=== PATIENT | male | born 1955 | race Caucasian/White ===

== ENCOUNTER 2018-02-14 08:10 | Emergency (ER) | payer BC ==
[2018-02-14 08:55] LABS: ADD MAN DIFF? NO
[2018-02-14] MEDS: morphine 4 MG/ML VIAL IV (08:56)
[2018-02-14] MEDS: ONDANSETRON 4 MG INJ IV (08:56)
[2018-02-14] MEDS: FAMOTIDINE 20 MG INJ IV (08:56)
[2018-02-14] MEDS: SOD CHLORIDE 0.9% 1,000 ML IV (08:57)
[2018-02-14 09:03] LABS: BASOPHIL # 0.1 10^3/ul (0.0-0.1); BASOPHILS % 0.9 % (0.0-2.0); EOSINOPHILS # 0.4 10^3/ul (0.0-0.5); EOSINOPHILS % 5.4 % (0.0-7.0); HEMATOCRIT 45.6 % (42.0-52.0); HEMOGLOBIN 15.4 g/dl (14.0-18.0); LYMPHOCYTES # 1.8 10^3/ul (0.8-2.9); LYMPHOCYTES % 26.4 % (15.0-51.0); MEAN CORPUSCULAR HEMOGLOBIN 28.7 pg (29.0-33.0); MEAN CORPUSCULAR HGB CONC 33.8 g/dl (32.0-37.0); MEAN CORPUSCULAR VOLUME 84.9 fl (82.0-101.0); MEAN PLATELET VOLUME 9.3 fl (7.4-10.4); MONOCYTE # 0.5 10^3/ul (0.3-0.9); MONOCYTES % 7.7 % (0.0-11.0); NEUTROPHIL # 4.1 10^3/ul (1.6-7.5); NEUTROPHILS % 59.3 % (39.0-77.0); PLATELET COUNT 338 10^3/UL (140-415); RED BLOOD COUNT 5.37 10^6/ul (4.70-6.10)
[2018-02-14 09:03] LABS: WHITE BLOOD COUNT 6.9 10^3/ul (4.8-10.8)
[2018-02-14 09:26] LABS: ALANINE AMINOTRANSFERASE 59 IU/L (13-69); ALBUMIN 4.5 g/dl (3.3-4.9); ALKALINE PHOSPHATASE 74 IU/L (42-121); ANION GAP 9 (5-13); ASPARTATE AMINO TRANSFERASE 39 IU/L (15-46); BILIRUBIN,INDIRECT 0.5 mg/dl (0-1.1); BILIRUBIN,TOTAL 0.5 mg/dl (0.2-1.3); BLOOD UREA NITROGEN 15 mg/dl (7-20); CALCIUM 9.6 mg/dl (8.4-10.2); CARBON DIOXIDE 26 mmol/L (21-31); CHLORIDE 105 mmol/L (97-110); CREATININE 0.97 mg/dl (0.61-1.24); Estimated GFR > 60 mL/min (>60); GLUCOSE 111 mg/dl (70-220); LIPASE 54 U/L (23-300); POTASSIUM 4.5 mmol/L (3.5-5.1); SODIUM 140 mmol/L (135-144); TOTAL PROTEIN 7.5 g/dl (6.1-8.1)
[2018-02-14 09:37] LABS: TROPONIN-I < 0.012 ng/ml (0.000-0.120)
[2018-02-14 09:47] LABS: ADD UMIC NO; UR ASCORBIC ACID NEGATIVE (NEGATIVE); UR BILIRUBIN (Dip) NEGATIVE (NEGATIVE); UR BLOOD (Dip) NEGATIVE (NEGATIVE); UR CLARITY CLEAR (CLEAR); UR COLOR YELLOW (YELLOW); UR GLUCOSE (Dip) NEGATIVE (NEGATIVE); UR KETONES (Dip) NEGATIVE (NEGATIVE); UR LEUKOCYTE ESTERASE (Dip) NEGATIVE Leu/ul (NEGATIVE); UR NITRITE (Dip) NEGATIVE (NEGATIVE); UR SPECIFIC GRAVITY (Dip) 1.013 (1.003-1.030); UR TOTAL PROTEIN (Dip) NEGATIVE (NEGATIVE); UR UROBILINOGEN (Dip) NEGATIVE (NEGATIVE)
[2018-02-14] MEDS: SOD CHLORIDE 0.9% 100 ML (09:55)
[2018-02-14] MEDS: IOHEXOL 300MG/ML 150 ML BTL (09:55)
== END 2018-02-14 11:39 | disposition home or self-care (01) ==
LOC: E/R 08:10
DX: K59.00 Constipation, unspecified (principal); R11.0 Nausea; I25.10 Atherosclerotic heart disease of native coronary artery without angina pectoris; I10 Essential (primary) hypertension; Z79.01 Long term (current) use of anticoagulants; Z79.82 Long term (current) use of aspirin; Z98.61 Coronary angioplasty status
CPT/HCPCS: 36415; 74177; 80053; 81003; 83690; 84484; 85025; 93005; 96374; 96375; 99285-25

== ENCOUNTER 2018-04-04 15:13 | Inpatient (IN) | payer OTHER, BC ==
[2018-04-04 15:46] LABS: ADD MAN DIFF? NO; BASOPHIL # 0.1 10^3/ul (0.0-0.1); BASOPHILS % 0.8 % (0.0-2.0); EOSINOPHILS # 0.5 10^3/ul (0.0-0.5); EOSINOPHILS % 5.5 % (0.0-7.0); HEMATOCRIT 44.3 % (42.0-52.0); HEMOGLOBIN 15.2 g/dl (14.0-18.0); LYMPHOCYTES # 2.1 10^3/ul (0.8-2.9); LYMPHOCYTES % 24.3 % (15.0-51.0); MEAN CORPUSCULAR HEMOGLOBIN 28.9 pg (29.0-33.0); MEAN CORPUSCULAR HGB CONC 34.3 g/dl (32.0-37.0); MEAN CORPUSCULAR VOLUME 84.2 fl (82.0-101.0); MEAN PLATELET VOLUME 9.4 fl (7.4-10.4); MONOCYTE # 0.7 10^3/ul (0.3-0.9); MONOCYTES % 8.3 % (0.0-11.0); NEUTROPHIL # 5.3 10^3/ul (1.6-7.5); NEUTROPHILS % 60.8 % (39.0-77.0); PLATELET COUNT 330 10^3/UL (140-415); RED BLOOD COUNT 5.26 10^6/ul (4.70-6.10); RED CELL DISTRIBUTION WIDTH 11.9 % (11.5-14.5)
[2018-04-04 15:46] LABS: WHITE BLOOD COUNT 8.7 10^3/ul (4.8-10.8)
[2018-04-04] MEDS: ASPIRIN 325 MG TAB PO (15:52)
[2018-04-04] MEDS: NITROGLYCERIN (SL) 0.4 MG TAB SL (15:52)
[2018-04-04 16:00] LABS: INR 0.92; PROTIME 12.4 Sec (11.9-14.9)
[2018-04-04 16:01] LABS: PARTIAL THROMBOPLASTIN TIME 30.8 Sec (23.0-35.0)
[2018-04-04 16:04] LABS: ALANINE AMINOTRANSFERASE 50 IU/L (13-69); ALBUMIN 4.5 g/dl (3.3-4.9); ALBUMIN/GLOBULIN RATIO 1.66; ALKALINE PHOSPHATASE 78 IU/L (42-121); ANION GAP 14 (5-13); ASPARTATE AMINO TRANSFERASE 28 IU/L (15-46); BILIRUBIN,INDIRECT 0.4 mg/dl (0-1.1); BILIRUBIN,TOTAL 0.4 mg/dl (0.2-1.3); BLOOD UREA NITROGEN 19 mg/dl (7-20); CALCIUM 9.7 mg/dl (8.4-10.2); CARBON DIOXIDE 27 mmol/L (21-31); CHLORIDE 101 mmol/L (97-110); CREATININE 1.19 mg/dl (0.61-1.24); Estimated GFR > 60 mL/min (>60); GLUCOSE 118 mg/dl (70-220); SODIUM 142 mmol/L (135-144); TOTAL PROTEIN 7.2 g/dl (6.1-8.1)
[2018-04-04 16:15] LABS: TROPONIN-I 0.019 ng/ml (0.000-0.120)
[2018-04-04] MEDS: NITROGLYCERIN 2% 1 GM OINT PKT TD (17:41)
[2018-04-04] MEDS ORDERED: LORAZEPAM 2 MG INJ IV (18:00)
[2018-04-04] MEDS ORDERED: NITROGLYCERIN (SL) 0.4 MG TAB SL (18:00)
[2018-04-04] MEDS ORDERED: hydrALAzine 20 MG INJ IV (18:00)
[2018-04-04] MEDS ORDERED: NACL 0.9% 3 ML SYG IV (18:00)
[2018-04-04] MEDS ORDERED: MAGNESIUM HYDROXIDE 30ML CUP PO (18:00)
[2018-04-04] MEDS ORDERED: DOCUSATE SODIUM 100 MG CAP PO (18:00)
[2018-04-04] MEDS ORDERED: ALBUTEROL/IPRATROPIUM (NEB) 3 ML AMP HHN (18:00)
[2018-04-04] MEDS ORDERED: ONDANSETRON 4 MG INJ IV ×2 (18:00→19:00)
[2018-04-04] MEDS ORDERED: HYDROCODONE/APAP (5/325) TAB PO (18:00)
[2018-04-04] MEDS ORDERED: ACETAMINOPHEN 325 MG TAB PO (19:00)
[2018-04-04 19:17] LABS: FREE T4 (FREE THYROXINE) 1.34 ng/dl (0.78-2.44)
[2018-04-04] MEDS: SOD CHLORIDE 0.45% 1,000 ML IV (21:02)
[2018-04-04] MEDS: HEPARIN 5,000 UNIT/1 ML VIAL SC (21:19)
[2018-04-04 22:54] LABS: CREATINE KINASE 50 IU/L (23-200)
[2018-04-04 23:07] LABS: CK INDEX 0.8; CK-MB 0.38 ng/ml (0.0-2.4); TROPONIN-I 0.034 ng/ml (0.000-0.120)
[2018-04-05 05:22] LABS: ADD MAN DIFF? NO
[2018-04-05 05:41] LABS: BASOPHIL # 0.1 10^3/ul (0.0-0.1); BASOPHILS % 1.1 % (0.0-2.0); EOSINOPHILS # 0.6 10^3/ul (0.0-0.5); EOSINOPHILS % 7.4 % (0.0-7.0); HEMOGLOBIN 14.5 g/dl (14.0-18.0); LYMPHOCYTES # 2.4 10^3/ul (0.8-2.9); MEAN CORPUSCULAR HEMOGLOBIN 28.3 pg (29.0-33.0); MEAN CORPUSCULAR VOLUME 85.9 fl (82.0-101.0); MEAN PLATELET VOLUME 9.7 fl (7.4-10.4); MONOCYTE # 0.7 10^3/ul (0.3-0.9); MONOCYTES % 8.8 % (0.0-11.0); NEUTROPHIL # 3.9 10^3/ul (1.6-7.5); NEUTROPHILS % 51.4 % (39.0-77.0); PLATELET COUNT 309 10^3/UL (140-415); RED BLOOD COUNT 5.12 10^6/ul (4.70-6.10)
[2018-04-05 05:41] LABS: WHITE BLOOD COUNT 7.6 10^3/ul (4.8-10.8)
[2018-04-05 05:44] LABS: CREATINE KINASE 44 IU/L (23-200)
[2018-04-05 05:46] LABS: ANION GAP 10 (5-13); BLOOD UREA NITROGEN 21 mg/dl (7-20); CARBON DIOXIDE 33 mmol/L (21-31); CHLORIDE 102 mmol/L (97-110); Estimated GFR > 60 mL/min (>60); GLUCOSE 108 mg/dl (70-220); MAGNESIUM 2.3 mg/dl (1.7-2.5); PHOSPHORUS 4.5 mg/dl (2.5-4.9); SODIUM 145 mmol/L (135-144)
[2018-04-05 05:52] LABS: HEMOGLOBIN A1C 5.4 % (0-5.9)
[2018-04-05 05:57] LABS: CK INDEX 0.8; CK-MB 0.37 ng/ml (0.0-2.4); TROPONIN-I 0.038 ng/ml (0.000-0.120)
[2018-04-05 06:02] LABS: CHOL/HDL RATIO 6.7 RATIO; HDL CHOLESTEROL 41 mg/dl (30-78); LDL CHOLESTEROL,CALCULATED 202 mg/dl; TRIGLYCERIDES 158 mg/dl (0-149)
[2018-04-05 06:02] LABS: CHOLESTEROL 275 mg/dl (100-200)
[2018-04-05] MEDS: SOD CHLORIDE 0.45% 1,000 ML IV (07:07)
[2018-04-05] MEDS: ACETAMINOPHEN 325 MG TAB PO (08:29)
[2018-04-05] MEDS: REGADENOSON 0.4 MG/5 ML SYG (09:54)
[2018-04-05] MEDS: CLOPIDOGREL 75 MG TAB PO (10:43)
[2018-04-05] MEDS: ASPIRIN (EC) 325 MG TAB PO (10:43)
[2018-04-05] MEDS: HEPARIN 5,000 UNIT/1 ML VIAL SC ×2 (10:46→22:38)
[2018-04-05] MEDS: morphine 2 MG INJ IV ×2 (13:45→20:36)
[2018-04-05] MEDS: ATORVASTATIN 40 MG TAB PO (20:35)
[2018-04-06 07:05] LABS: ADD MAN DIFF? NO
[2018-04-06 07:12] LABS: BASOPHIL # 0.1 10^3/ul (0.0-0.1); BASOPHILS % 0.9 % (0.0-2.0); EOSINOPHILS # 0.7 10^3/ul (0.0-0.5); HEMATOCRIT 44.2 % (42.0-52.0); HEMOGLOBIN 14.6 g/dl (14.0-18.0); LYMPHOCYTES # 2.1 10^3/ul (0.8-2.9); LYMPHOCYTES % 28.1 % (15.0-51.0); MEAN CORPUSCULAR HEMOGLOBIN 28.6 pg (29.0-33.0); MEAN CORPUSCULAR VOLUME 86.5 fl (82.0-101.0); MEAN PLATELET VOLUME 9.7 fl (7.4-10.4); MONOCYTE # 0.7 10^3/ul (0.3-0.9); MONOCYTES % 9.4 % (0.0-11.0); NEUTROPHIL # 3.9 10^3/ul (1.6-7.5); NEUTROPHILS % 52.2 % (39.0-77.0); PLATELET COUNT 305 10^3/UL (140-415); RED BLOOD COUNT 5.11 10^6/ul (4.70-6.10); RED CELL DISTRIBUTION WIDTH 11.9 % (11.5-14.5)
[2018-04-06 07:12] LABS: WHITE BLOOD COUNT 7.5 10^3/ul (4.8-10.8)
[2018-04-06 08:01] LABS: ANION GAP 9 (5-13); BLOOD UREA NITROGEN 19 mg/dl (7-20); CALCIUM 9.7 mg/dl (8.4-10.2); CARBON DIOXIDE 31 mmol/L (21-31); CHLORIDE 103 mmol/L (97-110); CREATININE 1.03 mg/dl (0.61-1.24); Estimated GFR > 60 mL/min (>60); GLUCOSE 107 mg/dl (70-220); POTASSIUM 4.9 mmol/L (3.5-5.1); SODIUM 143 mmol/L (135-144)
[2018-04-06] MEDS: HEPARIN 5,000 UNIT/1 ML VIAL SC ×2 (08:32→20:43)
[2018-04-06] MEDS: morphine 2 MG INJ IV ×2 (08:33→20:30)
[2018-04-06] MEDS: ASPIRIN (EC) 325 MG TAB PO (08:33)
[2018-04-06] MEDS: CLOPIDOGREL 75 MG TAB PO (08:33)
[2018-04-06] MEDS: ISOSORBIDE DINITRATE 5 MG TAB PO ×2 (11:50→20:29)
[2018-04-06] MEDS: METOPROLOL 25 MG TAB PO ×2 (11:51→20:30)
[2018-04-06] MEDS: ATORVASTATIN 40 MG TAB PO (20:29)
[2018-04-07 06:07] LABS: ADD MAN DIFF? NO
[2018-04-07 06:09] LABS: BASOPHIL # 0.1 10^3/ul (0.0-0.1); EOSINOPHILS # 0.7 10^3/ul (0.0-0.5); EOSINOPHILS % 9.3 % (0.0-7.0); HEMATOCRIT 42.2 % (42.0-52.0); HEMOGLOBIN 13.9 g/dl (14.0-18.0); LYMPHOCYTES % 26.3 % (15.0-51.0); MEAN CORPUSCULAR HEMOGLOBIN 28.4 pg (29.0-33.0); MEAN CORPUSCULAR HGB CONC 32.9 g/dl (32.0-37.0); MEAN CORPUSCULAR VOLUME 86.1 fl (82.0-101.0); MEAN PLATELET VOLUME 9.4 fl (7.4-10.4); MONOCYTE # 0.7 10^3/ul (0.3-0.9); MONOCYTES % 9.3 % (0.0-11.0); NEUTROPHIL # 4.1 10^3/ul (1.6-7.5); NEUTROPHILS % 53.6 % (39.0-77.0); PLATELET COUNT 292 10^3/UL (140-415); RED CELL DISTRIBUTION WIDTH 11.9 % (11.5-14.5)
[2018-04-07 06:09] LABS: WHITE BLOOD COUNT 7.6 10^3/ul (4.8-10.8)
[2018-04-07 06:43] LABS: ANION GAP 10 (5-13); BLOOD UREA NITROGEN 22 mg/dl (7-20); CALCIUM 9.6 mg/dl (8.4-10.2); CARBON DIOXIDE 28 mmol/L (21-31); CHLORIDE 102 mmol/L (97-110); CREATININE 1.08 mg/dl (0.61-1.24); Estimated GFR > 60 mL/min (>60); GLUCOSE 109 mg/dl (70-220); POTASSIUM 4.3 mmol/L (3.5-5.1); SODIUM 140 mmol/L (135-144)
[2018-04-07] MEDS: HEPARIN 5,000 UNIT/1 ML VIAL SC (08:10)
[2018-04-07] MEDS: ASPIRIN (EC) 81 MG TAB PO (08:57)
[2018-04-07] MEDS: ISOSORBIDE DINITRATE 5 MG TAB PO ×2 (08:57→13:00)
[2018-04-07] MEDS: METOPROLOL 25 MG TAB PO ×2 (08:58→20:22)
[2018-04-07] MEDS: CLOPIDOGREL 75 MG TAB PO (08:58)
[2018-04-07] MEDS ORDERED: ASPIRIN (EC) 325 MG TAB PO (09:00)
[2018-04-07] MEDS ORDERED: MIDAZOLAM 1 MG/ML 2 ML INJ (12:38)
[2018-04-07] MEDS ORDERED: IODIXANOL LOCM 100 ML BTL (12:38)
[2018-04-07] MEDS ORDERED: LIDOCAINE 1% (MDV) 20 ML INJ (12:38)
[2018-04-07] MEDS ORDERED: FENTAnyl 50 MCG/ML VIAL (12:38)
[2018-04-07] MEDS ORDERED: HEPARIN 1000 UNITS/ML 10 ML INJ (12:38)
[2018-04-07] MEDS ORDERED: SOD CHLORIDE 0.9% 500 ML (12:38)
[2018-04-07] MEDS ORDERED: VERAPAMIL 5 MG INJ (12:39)
[2018-04-07] MEDS ORDERED: NITROGLYCERIN (IC) 100 MCG/ML INJ (12:39)
[2018-04-07] MEDS ORDERED: CLOPIDOGREL 300 MG TAB (13:25)
[2018-04-07] MEDS ORDERED: IOHEXOL 350MG/ML 50 ML BTL (13:59)
[2018-04-07] MEDS ORDERED: AL HYDROX/MG HYDROX/SIMETH 30 ML CUP PO (14:30)
[2018-04-07] MEDS ORDERED: ONDANSETRON 4 MG INJ IV (14:30)
[2018-04-07] MEDS ORDERED: ACETAMINOPHEN 325 MG TAB PO (14:30)
[2018-04-07] MEDS ORDERED: OXYCODONE/ACETAMINOPHEN (5/325) TAB PO (14:30)
[2018-04-07] MEDS: SOD CHLORIDE 0.9% 1,000 ML IV (15:14)
[2018-04-07] MEDS ORDERED: morphine 4 MG/ML VIAL IV ×2 (16:00)
[2018-04-07] MEDS: ATORVASTATIN 40 MG TAB PO (20:21)
[2018-04-08 06:51] LABS: ADD MAN DIFF? NO
[2018-04-08 07:00] LABS: BASOPHIL # 0.1 10^3/ul (0.0-0.1); BASOPHILS % 0.9 % (0.0-2.0); EOSINOPHILS # 0.7 10^3/ul (0.0-0.5); EOSINOPHILS % 7.6 % (0.0-7.0); HEMATOCRIT 42.2 % (42.0-52.0); LYMPHOCYTES # 1.8 10^3/ul (0.8-2.9); LYMPHOCYTES % 19.4 % (15.0-51.0); MEAN CORPUSCULAR HEMOGLOBIN 28.2 pg (29.0-33.0); MEAN CORPUSCULAR HGB CONC 33.2 g/dl (32.0-37.0); MEAN CORPUSCULAR VOLUME 84.9 fl (82.0-101.0); MEAN PLATELET VOLUME 9.5 fl (7.4-10.4); MONOCYTE # 0.7 10^3/ul (0.3-0.9); MONOCYTES % 7.8 % (0.0-11.0); NEUTROPHIL # 5.9 10^3/ul (1.6-7.5); PLATELET COUNT 290 10^3/UL (140-415); RED BLOOD COUNT 4.97 10^6/ul (4.70-6.10); RED CELL DISTRIBUTION WIDTH 11.7 % (11.5-14.5)
[2018-04-08 07:00] LABS: WHITE BLOOD COUNT 9.3 10^3/ul (4.8-10.8)
[2018-04-08 07:19] LABS: ANION GAP 9 (5-13); BLOOD UREA NITROGEN 16 mg/dl (7-20); CALCIUM 9.5 mg/dl (8.4-10.2); CARBON DIOXIDE 26 mmol/L (21-31); CHLORIDE 106 mmol/L (97-110); CREATININE 0.95 mg/dl (0.61-1.24); Estimated GFR > 60 mL/min (>60); GLUCOSE 100 mg/dl (70-220); POTASSIUM 4.6 mmol/L (3.5-5.1); SODIUM 141 mmol/L (135-144)
[2018-04-08] MEDS: ASPIRIN (EC) 81 MG TAB PO (08:13)
[2018-04-08] MEDS: CLOPIDOGREL 75 MG TAB PO (08:13)
[2018-04-08] MEDS: ISOSORBIDE MONONITRATE(SR)30 MG TAB PO (08:14)
[2018-04-08] MEDS: METOPROLOL 25 MG TAB PO (08:15)
[2018-04-08] MEDS ORDERED: METOPROLOL 25 MG TAB PO (21:00)
== END 2018-04-08 14:52 | disposition home or self-care (01) | DRG 247 ==
LOC: TEL 04-06 12:36 → E/R 15:13 → TEL 18:37
PROC: 027135Z Dilation of Coronary Artery, Two Arteries with Two Drug-eluting Intraluminal Devices, Percutaneous Approach (ICD-10-PCS; principal; 2018-04-07 12:44)
PROC: 4A023N7 Measurement of Cardiac Sampling and Pressure, Left Heart, Percutaneous Approach (ICD-10-PCS; 2018-04-07 12:44)
PROC: B211YZZ Fluoroscopy of Multiple Coronary Arteries using Other Contrast (ICD-10-PCS; 2018-04-07 12:44)
DX: T82.855A Stenosis of coronary artery stent, initial encounter (principal); I25.110 Atherosclerotic heart disease of native coronary artery with unstable angina pectoris; I10 Essential (primary) hypertension; E78.5 Hyperlipidemia, unspecified; E66.9 Obesity, unspecified; I25.2 Old myocardial infarction; Y83.8 Other surgical procedures as the cause of abnormal reaction of the patient, or of later complication, without mention of misadventure at the time of the procedure; Z68.33 Body mass index [BMI] 33.0-33.9, adult; Z95.5 Presence of coronary angioplasty implant and graft
CPT/HCPCS: 36415; 71045; 78452; 80048; 80053; 80061; 82550; 82553; 83036; 83735; 84100; 84439; 84443; 84484; 85025; 85610; 85730; 93005; 93017; 93306; 93458; 97161; 99285-25